=== PATIENT | female | born 1940 | race Caucasian/White ===

== ENCOUNTER → 2017-04-06 12:21 | Outpatient (CLI) | payer MEDICARE, OTHER ==
[2016-10-27 08:09] VITALS: BMI 23.4
[~2017-04-06 12:21] MED LIST: AMBIEN5 MG PO; BENADRYL25 MG; CARDIZEM CD240 MG PO; CELEXA20 MG PO; COUMADIN5 MG PO; COZAAR25 MG PO; CRESTOR10 MG PO; HYDROCHLOROTHIA25 MG PO; HYZAAR 100-25 T1 TAB PO; K-DUR20 MEQ; LANOXIN125 MCG PO; LEVOTHROID25 MCG PO; MUCINEX600 MG; NAPROSYN250 MG; TYLENOL W/CODEI1 TAB PO; VALIUM 2 MG TAB2 MG; VITAMIN D31000 UNIT
== END | disposition home or self-care (01) ==
LOC: D.US 12:21
DX: I65.23 Occlusion and stenosis of bilateral carotid arteries (principal)

== ENCOUNTER → 2017-12-28 13:48 | Outpatient (CLI) | payer MEDICARE, OTHER ==
[2016-10-27 08:09] VITALS: BMI 23.4
== END | disposition home or self-care (01) ==
LOC: D.MAMMO 13:00
DX: Z12.31 Encounter for screening mammogram for malignant neoplasm of breast (principal)

== ENCOUNTER → 2018-06-29 12:33 | Outpatient (CLI) | payer MEDICARE, OTHER ==
[2016-10-27 08:09] VITALS: BMI 23.4
== END | disposition home or self-care (01) ==
LOC: D.US 12:33
DX: I65.23 Occlusion and stenosis of bilateral carotid arteries (principal)

== ENCOUNTER → 2019-07-04 12:38 | Outpatient (CLI) | payer MEDICARE, OTHER ==
[2016-10-27 08:09] VITALS: BMI 23.4
== END | disposition home or self-care (01) ==
LOC: D.US 06-28 10:30
PROVIDERS: ATTEND Internal Medicine Cardiovascular Disease
DX: I65.23 Occlusion and stenosis of bilateral carotid arteries (principal)

== ENCOUNTER 2021-05-20 12:02 | Emergency (ER) | payer MEDICARE, OTHER ==
[~2021-05-20] VITALS: Ht 172.7 cm; Wt 65.9 kg
[2021-05-20 12:14] VITALS: Ht 172.7 cm; Wt 65.9 kg
[2021-05-20 12:54] LABS: BASOPHILS 0.5 % (0-2); EOSINOPHILS 3.5 % (0-7); HEMATOCRIT 46.1 % (36.0-48.0); HEMOGLOBIN 14.9 g/dL (12-16); LYMPHOCYTES 30.3 % (15-50); MCHC 32.3 g/dL (31.0-37.0); MEAN PLATELET VOLUME 7.7 fL (7.4-10.4); MONOCYTES 13.2 % (2-11); NEUTROPHILS 52.5 % (40-80); PLATELET COUNT 280 10x3/uL (130-400); RBC 4.66 10x6/uL (4.00-5.40); RDW 13.1 % (11.5-14.5); WBC 9.2 10x3/uL (4.8-10.8)
[2021-05-20 13:16] LABS: CALC OSMOLALITY 286 mosm/kg (275-300); CALCIUM 9.3 mg/dL (8.5-10.1); CARBON DIOXIDE 35.3 mmol/L (21.0-32.0); CHLORIDE - SERUM 103 mmol/L (98-107); CREATININE - SERUM 0.7 mg/dL (0.6-1.3); GLUCOSE 105 mg/dL (74-106); SODIUM 142 mmol/L (136-145); UREA NITROGEN 23 mg/dL (7-18); eGFR NON AFRICAN AMERICAN 85 mL/min (90-120)
[2021-05-20 13:26] LABS: ALBUMIN 3.7 g/dL (3.4-5.0); ALKALINE PHOSPHATASE 81 U/L (30-120); ALT (SGPT) 21 U/L (10-68); BILIRUBIN - TOTAL 0.64 mg/dL (0.2-1.3); PROTEIN - SERUM 6.6 g/dL (6.4-8.2)
[2021-05-20 13:27] LABS: TROPONIN-I < 0.017 ng/mL (0.000-0.060)
[2021-05-20 13:53] VITALS: BP 178/80
== END 2021-05-20 13:54 | disposition home or self-care (01) ==
LOC: D.ER 12:02
PROVIDERS: Emergency Medicine
DX: I63.9 Cerebral infarction, unspecified (principal); Z79.01 Long term (current) use of anticoagulants; I48.91 Unspecified atrial fibrillation; R53.1 Weakness; I10 Essential (primary) hypertension; Z95.0 Presence of cardiac pacemaker; G62.9 Polyneuropathy, unspecified; J44.9 Chronic obstructive pulmonary disease, unspecified

== ENCOUNTER → 2021-05-24 09:27 | Outpatient (CLI) | payer MEDICARE, OTHER ==
[2021-05-20 12:14] VITALS: BMI 22.0
== END | disposition home or self-care (01) ==
LOC: D.ECHO 09:27
PROVIDERS: ATTEND Family Medicine
DX: Z86.73 Personal history of transient ischemic attack (TIA), and cerebral infarction without residual deficits (principal)

== ENCOUNTER 2021-05-24 11:30 | Emergency (ER) | payer MEDICARE, OTHER ==
[~2021-05-24] VITALS: Ht 172.7 cm; Wt 65.9 kg
[2021-05-24 11:33] VITALS: BP 164/110; Ht 172.7 cm; Wt 65.9 kg
[2021-05-24 12:21] LABS: CALC OSMOLALITY 285 mosm/kg (275-300); CALCIUM 9.6 mg/dL (8.5-10.1); CARBON DIOXIDE 34.1 mmol/L (21.0-32.0); CHLORIDE - SERUM 102 mmol/L (98-107); CREATININE - SERUM 0.7 mg/dL (0.6-1.3); GLUCOSE 97 mg/dL (74-106); POTASSIUM - SERUM 3.6 mmol/L (3.5-5.1); SODIUM 142 mmol/L (136-145); UREA NITROGEN 22 mg/dL (7-18); eGFR NON AFRICAN AMERICAN 85 mL/min (90-120)
[2021-05-24 12:30] LABS: ALBUMIN 4.1 g/dL (3.4-5.0); ALKALINE PHOSPHATASE 92 U/L (30-120); ALT (SGPT) 23 U/L (10-68); PROTEIN - SERUM 7.3 g/dL (6.4-8.2)
[2021-05-24 12:41] LABS: TROPONIN-I < 0.017 ng/mL (0.000-0.060)
[2021-05-24 12:51] LABS: BASOPHILS 0.8 % (0-2); EOSINOPHILS 2.3 % (0-7); HEMATOCRIT 46.2 % (36.0-48.0); HEMOGLOBIN 15.4 g/dL (12-16); LYMPHOCYTES 20.5 % (15-50); MCH 32.4 pg (26.0-34.0); MCHC 33.4 g/dL (31.0-37.0); MCV 96.9 fL (80.0-100.0); MEAN PLATELET VOLUME 7.9 fL (7.4-10.4); MONOCYTES 11.3 % (2-11); NEUTROPHILS 65.1 % (40-80); PLATELET COUNT 297 10x3/uL (130-400); RBC 4.77 10x6/uL (4.00-5.40); RDW 13.1 % (11.5-14.5); WBC 10.2 10x3/uL (4.8-10.8)
--- NOTE | 2021-05-25 12:01 | EC ---
PATIENT:BENEDICT COLEMAN DATE OF SERVICE: 05/24/21 SEX: F MEDICAL RECORD: [id number] DATE OF : 38 LOCATION:[facility] AGE OF PATIENT: 80 ADMISSION DATE: 05/24/21 REFERRING PHYSICIAN: INTERPRETING PHYSICIAN: DAVID BLANCO MD ECHOCARDIOGRAM REPORT ECHO CHARGES Date: CLINICAL DIAGNOSIS: ECHOCARDIOGRAPHIC MEASUREMENTS (adult normal given) AC root (d.<3.7cm) cm LV Septum d (<1.2 cm> cm Valve Excursion cm LV Septum (systole) cm Left Atria (s.<4.0cm> cm LVPW d(<1.2cm) cm RV (d.<2.3cm) cm LVPW (sytole) cm LV diastole(<5.6CM) cm MV E-F(>70mm/sec) cm LV systole cm LVOT Diameter cm MV exc.(>10mm) cm Est.ejection fraction (50-75%) % DOPPLER: LVIT cm/sec A cm/sec E cm/sec LA cm/sec RVSP mmHg LVOT cm/sec AOP1/2T m/s Asc. 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 INTERPRETATION: Normal left ventricular chamber size and contractile function with low normal ejection fraction of 50%. Left atrial chamber dilatation. Right atrium and right ventricular chamber size and function appears normal. Pacemaker lead visualized in the right heart chamber. Mild thickening and calcification of the aortic valve with good cusp excursion. Ifrc-os-grwjjigm aortic regurgitation. There is svwz-ng-hmeyplwp thickening of the mitral valve ECHOCARDIOGRAM REPORT [id number] BENEDICT COLEMAN leaflets with reduced cusp excursion. Rmqb-lr-yaftnbga mitral annular calcification. Hejf-eo-qqxkxgaw mitral stenosis. Moderate mitral regurgitation. Tricuspid valve appears normal. Mild tricuspid regurgitation. Pulmonic valve appears normal. Trivial pulmonary regurgitation. No pericardial effusion visualized. IMPRESSION: 1. Normal left ventricular chamber size and contractile function with low normal ejection fraction of 50%. 2. Jvpz-ty-ehjclpxu mitral stenosis. Moderate mitral regurgitation. 3. Mnmc-nu-ruzacvtv aortic regurgitation. TRANSINT:[id number] Voice Confirmation ID: [id number] DOCUMENT ID: [id number] DAVID BLANCO MD at 1201 CC: [id number] DICTATION DATE: 05/24/21 1506 CODIFIER: 05/24/21 1636 DEP ER 05/24/21 [place] [id number]
== END 2021-05-24 13:32 | disposition home or self-care (01) ==
LOC: D.ER 11:30
PROVIDERS: Emergency Medicine
DX: R55 Syncope and collapse (principal); G62.9 Polyneuropathy, unspecified; I10 Essential (primary) hypertension; J44.9 Chronic obstructive pulmonary disease, unspecified; Z79.01 Long term (current) use of anticoagulants